=== PATIENT | male | born 1955 | race Caucasian/White ===

== ENCOUNTER 2017-10-30 18:09 | Emergency (ER) | payer OTHER ==
[~2017-10-30 18:09] MED LIST: ATENOLOL-CHLOR1 EAC1 PO; LISINOPRIL40 MG PO; METFORMIN HCL1000 MG PO; PROBENECID-COL1 EACH PO
== END 2017-10-30 18:45 | disposition left against medical advice (07) ==
LOC: ER 18:09
DX: M79.604 Pain in right leg (principal)